=== PATIENT | female | born 1955 | race Caucasian/White ===

== ENCOUNTER 2021-06-21 13:47 | Emergency (ER) | payer MEDICARE, OTHER ==
[~2021-06-21] VITALS: Ht 170.2 cm; Wt 63.0 kg
[2021-06-21 13:56] VITALS: BP 135/79
[2021-06-21 14:29] LABS: BASOPHILS % (AUTO) 0.6 % (0-1); EOSINOPHILS # (AUTO) 0.1 X10'3 (0-0.9); EOSINOPHILS % (AUTO) 1.3 % (0-6); HEMATOCRIT 40.5 % (35.0-45.0); HEMOGLOBIN 13.6 g/dl (12.0-16.0); LYMPHOCYTES # (AUTO) 1.7 X10'3 (1.1-4.8); LYMPHOCYTES % (AUTO) 26.3 % (21-51); MEAN CORPUSCULAR HGB CONC 33.6 g/dL (33.0-36.5); MEAN CORPUSCULAR VOLUME 95.4 FL (78-98); MEAN PLATELET VOLUME 8.4 FL (7.4-10.4); MONOCYTES # (AUTO) 0.6 X10'3 (0-0.9); MONOCYTES % (AUTO) 8.9 % (2-12); NEUTROPHILS # (AUTO) 4.2 X10'3 (1.8-7.7); NEUTROPHILS % (AUTO) 62.9 % (42-75); PLATELET COUNT 215 X10'3 (140-440); RED BLOOD COUNT 4.25 X10'6 (4.20-5.60); RED CELL DISTRIBUTION WIDTH 12.8 % (11.5-14.5); WHITE BLOOD COUNT 6.6 X10'3 (4.5-11.0)
[2021-06-21 14:46] LABS: ALANINE AMINOTRANSFERASE 26 U/L (12-78); ALBUMIN 4.1 G/DL (3.4-5.0); ALBUMIN/GLOBULIN RATIO 1.5 (1.1-1.5); ALKALINE PHOSPHATASE 86 IU/L (46-116); ANION GAP 9 (8-16); ASPARTATE AMINO TRANSFERASE 23 U/L (10-37); BILIRUBIN,TOTAL 0.3 MG/DL (0.1-1.0); BLOOD UREA NITROGEN 10 MG/DL (7-18); BUN/CREATININE RATIO 12.7 (6.6-38.0); CALCIUM 8.7 MG/DL (8.5-10.1); CHLORIDE 106 MMOL/L (99-107); CREATININE 0.79 MG/DL (0.40-0.90); GLUCOSE 71 MG/DL (70-104); POTASSIUM 3.6 MMOL/L (3.5-5.1); SODIUM 143 MMOL/L (135-145); TOTAL CARBON DIOXIDE 27.7 MMOL/L (24-32); TOTAL PROTEIN 6.8 G/DL (6.4-8.2); eGFR 72 ML/MIN
[2021-06-21] MEDS ORDERED: normal saline 1000ml 1,000 ML IV ONE (15:15)
[2021-06-21 16:34] LABS: CLARITY,URINE CLEAR (Clear); COLOR,URINE STRAW (Yellow); GLUCOSE, URINE NEGATIVE (Neg); KETONES,URINE NEGATIVE (Neg); LEUKOCYTE ESTERASE ,URINE NEGATIVE (Neg); NITRITES, URINE NEGATIVE (Neg); OCCULT BLOOD,URINE NEGATIVE (Neg); PROTEIN,URINE NEGATIVE (Neg); UROBILINOGEN,URINE 0.2 E.U/dL (0.2-1.0)
[2021-06-21 16:36] LABS: UA COLLECTION TYPE CLN CATCH MIDSTREAM
== END 2021-06-21 18:20 | disposition home or self-care (01) ==
LOC: ER 13:49
DX: T73.3XXA Exhaustion due to excessive exertion, initial encounter (principal); R19.7 Diarrhea, unspecified; X58.XXXA Exposure to other specified factors, initial encounter
CPT/HCPCS: 36415; 80053; 81003; 84484; 85025; 93005; 96360; 99284; J7030

== ENCOUNTER 2021-06-24 12:23 | Emergency (ER) | payer MEDICARE, OTHER ==
[~2021-06-24] VITALS: Ht 160 cm; Wt 67.3 kg
[2021-06-24 16:27] LABS: BASOPHILS % (AUTO) 0.5 % (0-1); EOSINOPHILS # (AUTO) 0.1 X10'3 (0-0.9); EOSINOPHILS % (AUTO) 1.2 % (0-6); HEMATOCRIT 42.3 % (35.0-45.0); HEMOGLOBIN 14.5 g/dl (12.0-16.0); LYMPHOCYTES # (AUTO) 1.6 X10'3 (1.1-4.8); MEAN CORPUSCULAR HGB CONC 34.2 g/dL (33.0-36.5); MEAN CORPUSCULAR VOLUME 93.6 FL (78-98); MEAN PLATELET VOLUME 8.9 FL (7.4-10.4); MONOCYTES # (AUTO) 0.6 X10'3 (0-0.9); MONOCYTES % (AUTO) 8.7 % (2-12); NEUTROPHILS # (AUTO) 4.4 X10'3 (1.8-7.7); NEUTROPHILS % (AUTO) 65.6 % (42-75); PLATELET COUNT 217 X10'3 (140-440); RED BLOOD COUNT 4.51 X10'6 (4.20-5.60); RED CELL DISTRIBUTION WIDTH 12.7 % (11.5-14.5); WHITE BLOOD COUNT 6.7 X10'3 (4.5-11.0)
[2021-06-24 16:42] LABS: ALANINE AMINOTRANSFERASE 29 U/L (12-78); ALBUMIN 3.8 G/DL (3.4-5.0); ALBUMIN/GLOBULIN RATIO 1.3 (1.1-1.5); ALKALINE PHOSPHATASE 95 IU/L (46-116); ANION GAP 10 (8-16); ASPARTATE AMINO TRANSFERASE 23 U/L (10-37); BILIRUBIN,TOTAL 0.3 MG/DL (0.1-1.0); BLOOD UREA NITROGEN 10 MG/DL (7-18); BUN/CREATININE RATIO 12.7 (6.6-38.0); CHLORIDE 108 MMOL/L (99-107); CREATININE 0.79 MG/DL (0.40-0.90); GLUCOSE 79 MG/DL (70-104); SODIUM 144 MMOL/L (135-145); TOTAL CARBON DIOXIDE 25.7 MMOL/L (24-32); TOTAL PROTEIN 6.7 G/DL (6.4-8.2); eGFR 72 ML/MIN
[2021-06-24] MEDS ORDERED: normal saline 1000ml 1,000 ML IV ONE (16:45)
[2021-06-24 16:56] LABS: CLARITY,URINE CLEAR (Clear); COLOR,URINE YELLOW (Yellow); GLUCOSE, URINE NEGATIVE (Neg); KETONES,URINE NEGATIVE (Neg); LEUKOCYTE ESTERASE ,URINE NEGATIVE (Neg); NITRITES, URINE NEGATIVE (Neg); OCCULT BLOOD,URINE NEGATIVE (Neg); PH,URINE 6.5 (4.8-8.0); PROTEIN,URINE NEGATIVE (Neg); UROBILINOGEN,URINE 0.2 E.U/dL (0.2-1.0)
[2021-06-24 17:28] LABS: UA COLLECTION TYPE CLN CATCH MIDSTREAM
[2021-06-24 18:18] VITALS: BP 128/67
== END 2021-06-24 18:20 | disposition home or self-care (01) ==
LOC: ER 12:24
DX: R19.7 Diarrhea, unspecified (principal); R10.9 Unspecified abdominal pain; R53.1 Weakness; R53.83 Other fatigue
CPT/HCPCS: 36415; 80053; 81003; 85025; 96360; 99283; J7030

== ENCOUNTER 2025-07-28 08:26 | Outpatient (CLI) | payer MEDICARE, OTHER ==
[~2025-07-28] VITALS: Ht 162.6 cm; Wt 73.9 kg
[2025-07-28 09:10] VITALS: PULSE 68; RESP 16; O2SAT 93
[2025-07-28 09:27] LABS: TOTAL HEMOGLOBIN 14.2 G/dl (12.0-16.0)
[2025-07-28] MEDS: albuterol 2.5 MG/3 ML nebule NEB ONE (10:05)
[2025-07-28 11:10] VITALS: PULSE 94; RESP 18
--- NOTE | 2025-07-28 15:25 | PROCEDURE NOTE - Respiratory ---
Procedure Note-Respiratory Providers to Copies To 1: HERBERTH HENNING MD Procedure Name: This is a complete pulmonary function study dated July 28, 2025. Hemoglobin measurement was done as part of the study. There was also a room air blood gas obtained from this patient on the same date. Spirometry measurements: The forced vital capacity is normal. There is significant reduction in the FEV1. The FEV1 ratio is also reduced. Several of the flow rate measurements are substantially reduced. After inhaled bronchodilator was administered the FEV1 and some of the flow rates show slight improvement. Lung volume measurements: The total lung capacity is in the upper range of normal. The residual volume and the functional residual capacity measurements are somewhat elevated. This suggests hyperinflation with some air trapping within the lungs. These findings are commonly seen in significant obstructive lung disease. Lung diffusion measurement: The DLCO is in the normal range. It is noted that the KVO measurement is normal. The alveolar volume measurement is normal. The hemoglobin measurement is normal. Airway resistance measurement: The airway resistance is not elevated. Conclusion: This study is abnormal. There is evidence for obstructive ventilatory defect in the moderately severe category. The patient shows evidence of hyperinflation with air trapping. The lung diffusion capacity is in the normal range. These findings are consistent with the patient's diagnosis of smoking-related COPD. This patient should continue to use bronchodilator medication. We have no previous studies for comparison. A blood gas was drawn from this patient while the patient was breathing ambient air. The blood pH is normal. The pCO2 is normal. There is slight hypoxemia with the room air PO2 measuring at 70 mmHg. HERBERTH HENNING MD Jul 28, 2025 15:25
== END 2025-07-28 23:59 | disposition home or self-care (01) ==
LOC: RT 08:26
PROVIDERS: ATTEND Internal Medicine Pulmonary Disease
DX: J44.9 Chronic obstructive pulmonary disease, unspecified (principal)
CPT/HCPCS: 85018; 94060; 94727; 94729; 94760